=== PATIENT | male | born 1940 | race Caucasian/White ===

== ENCOUNTER 2017-02-27 09:04 | Outpatient (CLI) | payer MEDICARE, MEDICAID ==
--- NOTE | 2017-02-27 11:36 | MRI ---
MRI BRAIN WITH AND WITHOUT CONTRAST: Technique: Multiplanar, multisequential imaging of the brain obtained. History: Brain lab protocol followed. Follow up intracranial lesions. Headaches. Comparison: 05-14-16 FINDINGS: Ventricle size remains normal and unchanged. Mild chronic ischemic white matter changes are stable. No evidence of restricted diffusion. On post contrast images there continues to be cerebral based enhancing mass anteriorly involving the anterior dura and falx projecting to the right of midline measuring 2.2 x 2.7 cm in the axial plane. This is unchanged from the prior exam. There also continues to be a dural based enhancing mass in the posterior fossa posteriorly on the lef t measuring 1.4 cm AP dimension in the axial plane, also unchanged from the prior exam. Post-operative changes in the left frontal lobe again noted without interval change. No evidence of p arenchymal or significant dural enhancement at this location. There is some dural enhancement consist ent with post-operative change which is stable. Evidence of a mucous retention cyst along the posterior wall of the sphenoid sinuses in the midline i s a stable finding. IMPRESSION: MRI brain findings are stable when compared to 05-14-16. The dural based enhancing masses seen in the frontal lobe and posterior fossa regions are stable. Other stable findings are noted above. POS: [facility]
== END 2017-02-27 09:05 | disposition home or self-care (01) ==
LOC: SCSMRI 09:04
PROVIDERS: ATTEND Neurological Surgery
DX: D32.0 Benign neoplasm of cerebral meninges (principal)
CPT/HCPCS: 70553

== ENCOUNTER 2017-04-01 11:47 | Outpatient (CLI) | payer MEDICARE, MEDICAID ==
--- NOTE | 2017-04-01 13:41 | MRI ---
MRI CERVICAL SPINE WITHOUT CONTRAST: HISTORY: Cervical radiculopathy. MTD4.12. COMPARISON: None. FINDINGS: Background marrow signal of the cervical spine is normal. No fracture. No malalignment. In the pos terior soft tissues is a well-circumscribed fat density, likely lipoma. The cerebellar tonsils terminate at the level of the foramen magnum. Levels are as follows: C2-3: There is moderate left disk arthrosis. Minimal degenerative disk space height loss. Moderate left and mild right-sided neural foraminal narrowing. The spinal canal measures 9 mm. C3-4: Mild degenerative disk space height loss. Mild uncinate process hypertrophy. Moderate left-s amy facet arthrosis. Moderate left and mild right-sided neural foraminal narrowing. The spinal darby l measures 9 mm. C4-5: Moderate degenerative disk space height loss. Mild uncinate process hypertrophy. Moderate le ft and mild right sided disk arthrosis. Moderate left and mild right neural foraminal narrowing. Th e spinal canal measures 9 mm. C5-6: Moderate circumferential disk space height loss. There is a low-grade posterior disk-osteophy te complex and mild uncinate process hypertrophy. The spinal canal measures approximately 8 mm. The re is moderate bilateral neural foraminal narrowing. C6-7: Moderate degenerative disk space height loss and circumferential disk bulge. Mild facet arthr osis. Moderate uncinate process hypertrophy. Mild ligamentum flavum hypertrophy. Spinal canal domingo ures 8 mm. There is moderate to severe left and moderate right neural foraminal narrowing. IMPRESSION: 1. Multilevel mild spinal canal narrowing and neural foraminal narrowing as described above. 2. 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 POS: [facility]
--- NOTE | 2017-04-01 13:48 | RAD ---
TWO VIEWS CERVICAL SPINE: COMPARISON: None. HISTORY: Cervical radiculopathy that starts in the back of the neck and radiates to the back of the head. FINDINGS: Flexion and extension lateral views of the cervical spine were performed. There is intervertebral di sk space narrowing and osteophyte formation surrounding the C4-5 through C7-T1 intervertebral disks. Alignment is unchanged with flexion and extension. No prevertebral soft tissue swelling is seen. IMPRESSION: Moderate degenerative changes of the cervical spine with unchanged alignment with bending. POS: [facility]
== END 2017-04-01 11:48 | disposition home or self-care (01) ==
LOC: SCSMRI 11:47
PROVIDERS: ATTEND Neurological Surgery
DX: M47.22 Other spondylosis with radiculopathy, cervical region (principal); M48.02 Spinal stenosis, cervical region
CPT/HCPCS: 72040; 72141

== ENCOUNTER 2017-10-04 09:12 | Outpatient (CLI) | payer MEDICARE, MEDICAID ==
--- NOTE | 2017-10-04 11:49 | ULT ---
BILATERAL RENAL ULTRASOUND: Date: 10/04/17 INDICATION: Renal cysts. COMPARISON: CT abdomen and pelvis dated 04/16/12. FINDINGS: Right kidney measures 12.4 x 7.1 x 6.3 cm. Left kidney measures 13.0 x 6.2 x 5.3 cm. There was a 9.7 x 5.0 x 11.0 cm cyst involving the inferior pole of the right kidney. An additional 9 .6 x 7.4 x 9.6 cm cyst is seen involving the superior pole of the right kidney. Cysts have increased in size from the comparison CT examination where the inferior pole cyst measured approximately 8.7 x 8.3 cm in its greatest axial dimension. The superior pole cyst measured 6.7 x 7.5 cm. Small, subcentimeter cysts seen within the inferior pole of the left kidney on the comparison examina tion are not well detailed on the current study. Visualized bladder is normal appearing. IMPRESSION: 1. Interval enlargement of a simple cyst involving the right kidney as above. 2. Subcentimeter cysts involving the inferior pole left kidney on the prior CT examination are not w ell seen. POS: [facility]
--- NOTE | 2017-10-04 12:05 | ULT ---
ULTRASOUND TESTICULAR WITH DOPPLER: Date: 10/04/17 HISTORY: N43.3, hydrocele unspecified. COMPARISON: Ultrasound from 2013. FINDINGS: Real-time Haddad scale with color Doppler and spectral analysis of both testicles was performed. Right testicle measures 4.2 x 2.5 x 3.3 cm with a small testicular rete testis cyst. Left testicle measures 3.6 x 2.3 x 3.1 cm. Both epididymides have a complex cyst. There appears to also be a small left varicocele. No abnormal testicular mass. IMPRESSION: 1. Similar appearance from 2013 with small epididymal cysts and small hydroceles. 2. Small left varicocele. POS: [facility]
== END 2017-10-04 09:13 | disposition home or self-care (01) ==
LOC: SCSULT 09:12
PROVIDERS: ATTEND Urology
DX: N43.3 Hydrocele, unspecified (principal); N28.1 Cyst of kidney, acquired; E11.9 Type 2 diabetes mellitus without complications; N50.3 Cyst of epididymis; I86.1 Scrotal varices
CPT/HCPCS: 76770; 76870; 93976

== ENCOUNTER 2018-04-14 07:23 | Outpatient (CLI) | payer MEDICARE, MEDICAID ==
[2018-04-15 15:11] LABS: Hemoglobin 14.2 g/dL (14.0-18.0); Mean Corpuscular Hemoglobin 29.5 pg (27.0-31.0); Mean Corpuscular Volume 92.1 fL (78.0-98.0); Mean Platelet Volume 8.5 fL (7.4-10.4); Platelet Count 184 thou/uL (130-400); RBC Distribution Width 14.1 % (11.5-14.5); White Blood Cell (WBC) Count 3.6 thou/uL (4.8-10.8)
[2018-04-15 15:14] LABS: Bilirubin Negative (Negative); Blood, Urine Negative (Negative); Clarity CLEAR (Clear); Glucose, Urine (Dipstick) Negative (Negative); Leukocyte Negative (Negative); Nitrite Negative (Negative); Protein, Urine (Dipstick) Trace mg/dL (Neg-Trace); Specific Gravity, Urine 1.017 (1.002-1.036); Urobilinogen 0.2 mg/dL (0.2-1.0)
[2018-04-15 15:15] LABS: Bacteria/HPF None Seen HPF (None Seen); Hyaline Casts/LPF 4-6 HYALINE CAST LPF (0-3 Hyaline); Pathc Cast-AUWi Flag 1.01 (0-2.49); RBC/HPF 0-3 HPF (0-3); Squamous Epithelial 0-3 HPF (0-3); WBC/HPF 0-3 HPF (0-3)
[2018-04-15 15:17] LABS: Prothrombin Time 13.6 SEC (12.0-14.7)
[2018-04-15 15:33] LABS: Anion Gap 18 mmol/L (10-20); BUN (Urea Nitrogen) 21 mg/dL (8.4-25.7); Calc. Creatinine Clearance 0 mL/min (70-130); Calcium 9.5 mg/dL (7.8-10.44); Carbon Dioxide 21 mmol/L (23-31); Chloride 100 mmol/L (98-107); Estimated GFR-MDRD 53; Glucose 117 mg/dL (83-110); Potassium 4.2 mmol/L (3.5-5.1); Sodium 135 mmol/L (136-145)
--- NOTE | 2018-04-16 16:00 | EKG ---
Test Reason : Blood Pressure : / mmHG Vent. Rate : 079 BPM Atrial Rate : 079 BPM P-R Int : 158 ms QRS Dur : 082 ms QT Int : 362 ms P-R-T Axes : -18 021 -01 degrees QTc Int : 415 ms Normal sinus rhythm Poor anterior R wave progression Abnormal ECG When compared with ECG of 06-MAR-2016 11:16, No significant change was found Confirmed by HELEDR GARCIA, . S. (4) on 04/16/2018 3:59:52 PM Referred By: JARAD Confirmed By:DR. Jai PENDLETON MD
== END 2018-04-14 07:24 | disposition home or self-care (01) ==
LOC: LABBT 07:23
PROVIDERS: ATTEND Urology
DX: Z01.818 Encounter for other preprocedural examination (principal); N40.1 Benign prostatic hyperplasia with lower urinary tract symptoms; N43.3 Hydrocele, unspecified; E11.9 Type 2 diabetes mellitus without complications; N35.919 Unspecified urethral stricture, male, unspecified site; I10 Essential (primary) hypertension; Z90.79 Acquired absence of other genital organ(s); Z87.898 Personal history of other specified conditions
CPT/HCPCS: 80048; 81001; 85027; 85610; 85730; 86850; 86900; 86901; 87086; 93005; 93010

== ENCOUNTER 2018-04-21 06:05 | Observation (INO) | payer MEDICARE, MEDICAID ==
[2018-04-15 14:04] VITALS: BMI 38.7
[2018-04-21] MEDS ORDERED: Midazolam HCl 2 mg/2 ml Vial ONE (06:18)
[2018-04-21] MEDS ORDERED: Fentanyl 100 MCG/2 ML VIAL ONE (06:19)
[2018-04-21] MEDS ORDERED: Levofloxacin 500 mg/D5W 100 ml Premix Bag ONE (06:36)
[2018-04-21] MEDS ORDERED: Iothalamate Meglumine 60% 50 ML VIAL FS ONE (07:22)
[2018-04-21] MEDS ORDERED: B & O ONE (09:19)
[2018-04-21] MEDS ORDERED: Promethazine HCl 25 MG/ML VIAL SLOW IVP PRN (09:27)
[2018-04-21] MEDS ORDERED: Promethazine HCl 25 MG/ML VIAL IM PRN (09:27)
[2018-04-21] MEDS ORDERED: Ondansetron HCl/PF 4 MG/2 ML Vial IVP PRN (09:27)
[2018-04-21] MEDS ORDERED: SUGAMMADEX SODIUM 200 MG/2 ML VIAL ONE (09:41)
[2018-04-21] MEDS ORDERED: Morphine 4 MG/ML VIAL SLOW IVP PRN (09:52)
[2018-04-21] MEDS ORDERED: Mag-Al 1200 mg/1200 mg/30 ML UDCUP PO PRN (09:52)
[2018-04-21] MEDS ORDERED: Dextrose 50% Abboject 50 ML SYRINGE SLOW IVP PRN (09:52)
[2018-04-21] MEDS ORDERED: Insulin Regular 300 UNITS/3 ML VIAL SC PRN (09:52)
[2018-04-21] MEDS ORDERED: Bisacodyl 10 MG SUPP PR PRN (09:52)
[2018-04-21] MEDS ORDERED: Morphine 2 MG/ML SYRINGE SLOW IVP PRN (09:52)
[2018-04-21] MEDS ORDERED: Ondansetron PF 4 MG/2 ML Vial IVP PRN (09:52)
[2018-04-21] MEDS ORDERED: Dextrose 5% in Water 1,000 ML IV PRN (09:52)
[2018-04-21] MEDS ORDERED: diphenhydrAMINE 50 MG/ML VIAL IVP PRN (09:52)
[2018-04-21] MEDS ORDERED: Oxybutynin 5 MG TAB PO PRN (09:52)
[2018-04-21] MEDS ORDERED: HYDROcodone/Acetaminophen 5/325 mg Tablet PO PRN ×2 (09:52)
--- NOTE | 2018-04-21 10:38 | RAD ---
RETROGRADE URETHROGRAM: DATE: 04/21/2018. HISTORY: Pain. FINDINGS: A single image from a retrograde urethrogram is provided. Evaluation is limited on this examination. There is contrast media within the region of the urinary bladder. There is irregularity involving the prostatic and bulbous urethra, significance uncertain on single provided image. Stricture cannot be excluded. Correlation with real-time imaging essential. IMPRESSION: Retrograde urethrogram as above. POS: [facility]
[2018-04-21 10:39] LABS: #Eosinphils 0.2 thou/uL (0.0-0.7); #Lymphocytes 1.8 thou/uL (1.20-3.40); #Monocytes 0.4 thou/uL (0.11-0.59); #Neutrophils 3.1 thou/uL (1.40-6.50); %Basophils 0.6 % (0.0-1.0); %Eosinophils 3.3 % (0.0-10.0); %Lymphocytes 32.7 % (21.0-51.0); %Monocytes 7.2 % (0.0-10.0); %Neutrophils 56.2 % (42.0-75.0); Hemoglobin 12.2 g/dL (14.0-18.0); Mean Corpuscular HGB CONC 31.6 g/dL (32.0-36.0); Mean Corpuscular Hemoglobin 28.9 pg (27.0-31.0); Mean Corpuscular Volume 91.4 fL (78.0-98.0); Mean Platelet Volume 8.5 fL (7.4-10.4); Platelet Count 164 thou/uL (130-400); Red Blood Cell (RBC) Count 4.23 mill/uL (4.70-6.10); White Blood Cell (WBC) Count 5.4 thou/uL (4.8-10.8)
[2018-04-21] MEDS ORDERED: LINACLOTIDE 145 MCG PO PRN (10:45)
[2018-04-21 10:59] LABS: Anion Gap 13 mmol/L (10-20); BUN (Urea Nitrogen) 22 mg/dL (8.4-25.7); Calc. Creatinine Clearance 98 mL/min (70-130); Calcium 8.6 mg/dL (7.8-10.44); Carbon Dioxide 20 mmol/L (23-31); Chloride 104 mmol/L (98-107); Estimated GFR-MDRD 70; Glucose 107 mg/dL (83-110); Potassium 3.5 mmol/L (3.5-5.1); Sodium 133 mmol/L (136-145)
[2018-04-21] MEDS ORDERED: cefTRIAXone\\ROCEPHIN 1 GM in Sodium Chloride 0.9% 100 ML IVPB SCH ×2 (11:00→12:00)
--- NOTE | 2018-04-21 11:07 | OP ---
DATE OF PROCEDURE: 04/21/2018 PREOPERATIVE DIAGNOSES: 1. A 77-year-old male with history of benign prostatic hyperplasia, status post transurethral resection of the prostate in 2006 with regrowth adenoma. 2. Proximal penile and bulbar urethral stricture. POSTOPERATIVE DIAGNOSES: 1. A 77-year-old male with history of benign prostatic hyperplasia, status post transurethral resection of the prostate in 2006 with regrowth adenoma. 2. Proximal penile and bulbar urethral stricture. PROCEDURES PERFORMED: Cystoscopy, retrograde urethrogram, transurethral resection of prostate, urethral stricture dilatation. ANESTHESIA: General. COMPLICATIONS: None apparent. DISPOSITION: To recovery room in stable condition. SPECIMEN: TUR of prostate. FINDINGS: 1. Retrograde urethrogram demonstrating narrowing at the level of the proximal penile urethra. 2. Cystoscopy demonstrating multi-annular proximal penile urethral stricture x2, bulbar urethral stricture x1, appears soft in nature, caliber approximately 12 to 14-Malagasy caliber. 3. Prostatic regrowth adenoma obstructing status post TUR. there is a TUR defect with no evidence of bladder neck contracture; however, demonstrating regrowth adenoma laterally, most of the obstructive component of ventral 4. Bladder grossly unremarkable. UOs well away from the bladder neck. INDICATIONS FOR PROCEDURE AND HISTORY: Mr. Llanos is a 77-year-old male with history of diabetes and BPH, underwent transurethral resection of prostate in 2005 at [facility]. The patient travels back and forth from [place]. I initially saw him back in 2012 and re-presented to establish care. Staging cystoscopy demonstrated multi-annular proximal penile urethral stricture, 12 to 14-Malagasy caliber, he subsequently traveled back to [place] and presents back to my office to undergo surgical intervention for urethral stricture, repeat TUR. Risks and complications of the procedure were reviewed with the patient and family in detail including, but not limited to: Bleeding, pain, infection, clot retention, recurrent nature of urethral stricture disease, PE, DVT, perioperative morbidity, mortality, WI, and CVA. Possible secondary procedure was reviewed with the patient in detail. All questions were answered to satisfaction and desired to proceed. DESCRIPTION OF PROCEDURE: After an informed consent was signed, the patient was taken to the operating room, placed in a dorsal lithotomy position with the genital area prepped and draped in the usual surgical sterile fashion. Broad-spectrum antibiotics were provided. Bilateral JEREMY hose SCDs placed. The patient was placed in a modified lateral position for a retrograde urethrogram. His penis was formally prepped and draped and using a 16-Malagasy Curiel catheter. Retrograde urethrogram was performed. This demonstrated a subtle narrowing at the proximal penile urethra wide caliber and bladder was easily opacified. At this time, the patient was placed in supine position, then subsequently placed in dorsal lithotomy. Then, genital area was formally prepped and redraped again. At this time, a 21-Malagasy cystoscope was utilized for cystoscopy to stage his urethra demonstrating a proximal penile urethral stricture x2. This appears soft in nature. I was able to bypass this with a 21-Malagasy cystoscope. Using a 0.35 Sensor wire, this was passed to the level of the bladder and I was easily able to maneuver the scope to the level of the prostate and the bladder. There was a soft bulbar stricture was passively dilated. The prostatic urethra was entered, which demonstrated a regrowth adenoma at the ventral floor. There was a TUR defect with regrowth adenoma at the lateral lobes obstructing in nature. However, most of his obstructive component came from the dorsal ventral floor. Bladder was entered. It was somewhat challenging to enter the patient's bladder due to his body habitus, morbid obesity, as he also has a hydrocele. The patient's family has been advised that TUR may be somewhat cumbersome due to his hydrocele. In his body habitus. I was able to engage the prostatic tissue and subsequently perform TUR uneventfully. The lateral anterior aspect of the prostate was somewhat difficult to engage, therefore did not aggressively resect this region. Due to his moderate size hydrocele and his morbid obesity, the angle of the scope is somewhat cumbersome to reach the anterior lateral urethra. With the wire removed, I staged his urethra again, which demonstrated the strictures were passively dilated. At this time with the wire in-situ. I passed a 25-Malagasy cystoscope passively dilating the stricture. Subsequently, I passed a 26-Malagasy resectoscope with a visual obturator under guidewire assist. Once in the bladder, the wire was then removed. Using gyrus monopolar, we then proceeded to perform transurethral resection of his prostate in a classic [place] fashion. However, as there was a regrowth adenoma at the floor contributing to most of his obstructive component, this was addressed first. The bladder neck was taken down, flushed to the obstructing adenoma at the floor ventrally and this was resected flush. We then subsequently resected the lateral lobes to meet the resection line of the ventral TUR site. At the end of the procedure, he had a wide bladder neck. He tolerated the procedure well. All prostatic chips were evacuated with Houserie evacuator. I re-staged his urethra, which demonstrated the resolution of his strictures with passive dilatation. A 22- Malagasy 3-way Curiel catheter was able to pass without guidewire assist and then went without any issues. A 30 mL was insufflated and continuous bladder irrigation tubing was initiated with clear light pink output. The patient will be monitored overnight and will be discharged with indwelling Curiel catheter, if urine output remains clear off CBI tomorrow morning. [facility] ID: [id number] [facility]
[2018-04-21] MEDS: Sodium Chloride 0.9% 1,000 ML IV SCH ×2 (11:44→22:08)
[2018-04-21] MEDS ORDERED: Rocuronium Bromide 10 MG/ML (10ML VIAL) ONE (15:48)
[2018-04-21] MEDS ORDERED: Glycopyrrolate 0.2 MG/ML 5 ML SYRINGE ONE (15:48)
[2018-04-21] MEDS ORDERED: PHENYLEPHRINE-NS 100 MCG/ML 10 ML SYRINGE ONE (15:48)
[2018-04-21] MEDS ORDERED: Ondansetron PF 4 MG/2 ML Vial ONE (15:48)
[2018-04-21] MEDS ORDERED: PROPOFOL 200 MG/20 ML VIAL ONE (15:48)
[2018-04-21] MEDS ORDERED: Lidocaine 1% PF 5 ML VIAL ONE (15:48)
[2018-04-21] MEDS ORDERED: MELATONIN 5 MG PO PRN (17:37)
[2018-04-21] MEDS ORDERED: Melatonin 3 MG TAB PO PRN (17:52)
[2018-04-21] MEDS: Docusate 100 MG CAP PO SCH (20:46)
[2018-04-21] MEDS: Famotidine/PF 20 mg/2ml Vial SLOW IVP SCH (20:46)
[2018-04-21] MEDS: Milk Of Magnesia 30 ML UDCUP PO PRN (20:46)
[2018-04-21] MEDS ORDERED: Fenofibrate Nanocrystallized 145 MG TAB PO SCH (21:00)
[2018-04-22] MEDS: Milk Of Magnesia 30 ML UDCUP PO PRN (01:54)
[2018-04-22 05:57] LABS: #Basophils 0.1 thou/uL (0.0-0.2); #Eosinphils 0.2 thou/uL (0.0-0.7); #Lymphocytes 1.2 thou/uL (1.20-3.40); #Monocytes 0.5 thou/uL (0.11-0.59); #Neutrophils 4.7 thou/uL (1.40-6.50); %Basophils 0.9 % (0.0-1.0); %Eosinophils 3.2 % (0.0-10.0); %Lymphocytes 18.7 % (21.0-51.0); %Monocytes 7.2 % (0.0-10.0); Hemoglobin 12.1 g/dL (14.0-18.0); Mean Corpuscular HGB CONC 32.3 g/dL (32.0-36.0); Mean Corpuscular Hemoglobin 29.4 pg (27.0-31.0); Mean Corpuscular Volume 91.2 fL (78.0-98.0); Mean Platelet Volume 8.6 fL (7.4-10.4); Platelet Count 155 thou/uL (130-400); Red Blood Cell (RBC) Count 4.13 mill/uL (4.70-6.10); White Blood Cell (WBC) Count 6.7 thou/uL (4.8-10.8)
[2018-04-22 06:18] LABS: Anion Gap 9 mmol/L (10-20); BUN (Urea Nitrogen) 14 mg/dL (8.4-25.7); Calc. Creatinine Clearance 116 mL/min (70-130); Calcium 8.2 mg/dL (7.8-10.44); Carbon Dioxide 24 mmol/L (23-31); Chloride 104 mmol/L (98-107); Estimated GFR-MDRD 85; Glucose 122 mg/dL (83-110); Potassium 3.4 mmol/L (3.5-5.1); Sodium 134 mmol/L (136-145)
[2018-04-22] MEDS: Sodium Chloride 0.9% 1,000 ML IV SCH (07:30)
[2018-04-22] MEDS ORDERED: Liraglutide [Victoza 3-Pak] 1.8 MG SC SCH (09:00)
[2018-04-22] MEDS ORDERED: Hydrochlorothiazide 25 MG TAB PO SCH (09:00)
[2018-04-22] MEDS ORDERED: Non-Formulary Item 1 EACH (Insulin Glargine,Hum.Rec.Anlog [Lantus Solostar] 45 UNIT) SQ SCH (09:00)
[2018-04-22] MEDS ORDERED: Insulin Glargine 45 UNITS in Pre-Filled Syringe 1 EACH SC SCH (09:00)
[2018-04-22] MEDS ORDERED: Finasteride 5 MG TAB PO SCH (09:00)
[2018-04-22] MEDS: Docusate 100 MG CAP PO SCH (09:52)
[2018-04-22] MEDS: Famotidine/PF 20 mg/2ml Vial SLOW IVP SCH (09:56)
[2018-04-22 11:55] VITALS: BP 126/72; TEMP 98.7
--- NOTE | 2018-04-23 05:10 | DIS ---
DATE OF ADMISSION: 04/21/2018 DATE OF DISCHARGE: 04/22/2018 PROCEDURES: Cystoscopy, urethral stricture dilatation, transurethral resection of prostate. CONDITION: Stable. DISPOSITION: Home. DISCHARGE INSTRUCTIONS: Indwelling Curiel catheter to gravity leg bag, instructions provided. No heavy lifting. No strenuous activity. No aspirin or ibuprofen products until followup appointment. May resume his home medications, prescription provided for ciprofloxacin 500 mg one p.o. b.i.d. until followup appointment, # 14; Colace, #30, one p.o. b.i.d.; [place] 5/325, #30. BRIEF HOSPITAL COURSE: Mr. Llanos is a 77-year-old male, who underwent transurethral resection of prostate back in [place] in 2005, found to have urethral stricture and persistent BPH component. He underwent urethral stricture dilatation, transurethral resection of prostate. Surgery was uneventful. Minimal blood loss was noted. His continuous bladder irrigation was held this morning uo bae pink tinged urine, clear. His labs are stable. The patient is clinically stable to be discharged home. followup appointment next Saturday at 8:15 for Curiel catheter removal. Instructions regarding Cruiel catheter care provided to patient and family in detail. Job ID: [id number] [facility]
[2018-04-23] MEDS ORDERED: metFORMIN 500 MG TAB PO SCH (08:00)
== END 2018-04-22 13:54 | disposition home or self-care (01) ==
LOC: SDC 06:05 → SURG A 10:47
PROVIDERS: ADMIT Urology; ATTEND Urology
PROC: 0VT08ZZ Resection of Prostate, Via Natural or Artificial Opening Endoscopic (ICD-10-PCS; principal; 2018-04-21)
PROC: 0T7D8ZZ Dilation of Urethra, Via Natural or Artificial Opening Endoscopic (ICD-10-PCS; 2018-04-21)
DX: D29.1 Benign neoplasm of prostate (principal); N35.911 Unspecified urethral stricture, male, meatal; N43.3 Hydrocele, unspecified; I10 Essential (primary) hypertension; E11.9 Type 2 diabetes mellitus without complications; E78.2 Mixed hyperlipidemia; E66.01 Morbid (severe) obesity due to excess calories; Z68.38 Body mass index [BMI] 38.0-38.9, adult; K21.9 Gastro-esophageal reflux disease without esophagitis; G47.30 Sleep apnea, unspecified; Z79.4 Long term (current) use of insulin; Z79.899 Other long term (current) drug therapy; Z98.890 Other specified postprocedural states
CPT/HCPCS: 51610; 52630; 74450; 80048 ×2; 82962 ×2; 85025 ×2; 88305; 96361 ×2; 96365; 96375; C1769; G0378; 36415; 36416; J0696; J1200; J1825; J1956; J2001; J2250; J2405; J2704; J3010; J7050; Q9961; S0028

== ENCOUNTER 2020-12-26 09:40 | Outpatient (CLI) | payer MEDICARE, MEDICAID ==
[2020-12-26 19:05] LABS: SARS-CoV-2 PCR by NAA Not Detected (NotDetected)
== END 2020-12-26 09:41 | disposition home or self-care (01) ==
LOC: LABBT 09:40
PROVIDERS: ATTEND Internal Medicine Gastroenterology
DX: Z01.812 Encounter for preprocedural laboratory examination (principal); R13.10 Dysphagia, unspecified; Z86.010 Personal history of colon polyps; Z20.822 Contact with and (suspected) exposure to COVID-19; I10 Essential (primary) hypertension; E11.9 Type 2 diabetes mellitus without complications
CPT/HCPCS: 80061; 81001; 82043; U0003; U0005; 36415; 80053; 84443; 85025

== ENCOUNTER 2020-12-29 12:24 | Day surgery (SDC) | payer OTHER, MEDICAID ==
[2020-12-28 11:36] VITALS: BMI 34.1
[2020-12-29] MEDS ORDERED: PROPOFOL 60 ML ONE (14:44)
[2020-12-29] MEDS ORDERED: Ketamine 50 MG/ML (10ML VIAL) ONE (14:44)
== END 2020-12-29 16:00 | disposition home or self-care (01) ==
LOC: SDC 12:24
PROVIDERS: ATTEND Internal Medicine Gastroenterology
PROC: 0DJ08ZZ Inspection of Upper Intestinal Tract, Via Natural or Artificial Opening Endoscopic (ICD-10-PCS; principal; 2020-12-29)
PROC: 0DJD8ZZ Inspection of Lower Intestinal Tract, Via Natural or Artificial Opening Endoscopic (ICD-10-PCS; principal; 2020-12-29)
DX: Z12.11 Encounter for screening for malignant neoplasm of colon (principal); K21.9 Gastro-esophageal reflux disease without esophagitis; D17.5 Benign lipomatous neoplasm of intra-abdominal organs; E78.00 Pure hypercholesterolemia, unspecified; I10 Essential (primary) hypertension; E11.40 Type 2 diabetes mellitus with diabetic neuropathy, unspecified; G47.30 Sleep apnea, unspecified; Z86.010 Personal history of colon polyps; Z95.5 Presence of coronary angioplasty implant and graft; Z79.890 Hormone replacement therapy; Z79.82 Long term (current) use of aspirin; Z79.4 Long term (current) use of insulin; Z79.84 Long term (current) use of oral hypoglycemic drugs; Z79.899 Other long term (current) drug therapy; Z87.11 Personal history of peptic ulcer disease
CPT/HCPCS: J2704